=== PATIENT | female | born 1975 | race Caucasian/White ===

== ENCOUNTER 2017-08-27 18:52 | Emergency (ER) | payer OTHER ==
[~2017-08-27] VITALS: Ht 160 cm; Wt 66.7 kg
[~2017-08-27 18:52] MED LIST: ACCUNEB SO1.25 MG/1 INH; ALBENZA200 MG PO; AMBIEN 10 MG TA10 MG PO; AMBIEN 5 MG TABL5 M1 PO; AMOXICILLIN875 MG PO; ATIVAN1 MG; CIPROFLOXACIN500 M1 PO; DEPAKOTE ER500 MG; FLAGYL500 MG; FLAGYL500 MG PO; HYDROCODONE-AP1 EAC6 PO; KLOR-CON 1010 MEQ PO; NORCO 5-325 TA1 EACH PO; ONDANSETRON HCL4 M2 PO; PERCOCET; PERCOCET 7.5-31 EACH PO; POTASSIUM20; PROTONIX40 M1; PROVENTIL IH; TOPAMAX50 MG; VALIUM5 MG PO; VICODIN 5-5001 EACH; ZOFRAN ODT4 MG PO
[2017-08-27] MEDS ORDERED: PLAVIX 75 MG TA75 M1 PO (19:05)
[2017-08-27] MEDS ORDERED: ZANTAC 150MG T150 MG PO (19:06)
[2017-08-27] MEDS ORDERED: VINPAT (19:06)
[2017-08-27 19:42] LABS: URINE BLOOD NEGATIVE (Negative); URINE CLARITY CLEAR; URINE COLOR YELLOW; URINE GLUCOSE-RANDOM NEGATIVE (Negative); URINE KETONES 2+ (Negative); URINE LEUKOCYTES-REFLEX NEGATIVE (Negative); URINE NITRITE-REFLEX NEGATIVE (Negative); URINE PROTEIN NEGATIVE (Negative); URINE SPECIFIC GRAVITY 1.025 (1.005-1.030); URINE UROBILINOGEN 0.2 E.U./dl (0.2-1.0)
[2017-08-27 19:46] LABS: ICTOTEST (BILI CONFIRMATORY) Negative (Negative); URINE BILIRUBIN 1+ (Negative)
[2017-08-27 20:00] LABS: ABSOLUTE LYMPHOCYTES 3.3 thou/uL (0.8-5.3); ABSOLUTE MONOCYTES 0.4 thou/uL (0.0-1.2); BASOPHILS 0.3 %; CALCIUM 8.8 mg/dL (8.5-10.1); CREATININE 0.6 mg/dL (0.6-1.3); EOSINOPHILS 0.3 %; HEMATOCRIT 39.4 % (37.0-47.0); HEMOGLOBIN 13.8 gm/dL (12.0-15.0); LYMPHOCYTES 37.8 %; MCH 39.9 pg (26.0-34.0); MCHC 35.1 g/dL (28.0-37.0); MCV 113.6 fL (80.0-100.0); MONOCYTES 4.7 %; MPV 7.9 fl. (7.2-11.1); NUCLEATED RBCS 0 /100WBC; PLATELET COUNT* 224 thou/uL (150-400); POLYS 56.9 %; POTASSIUM 3.3 mmol/L (3.5-5.1); RBC 3.47 mil/uL (4.20-5.00); RDW-CV 13.3 % (10.5-14.5); WBC 8.7 thou/uL (4.0-11.0)
[2017-08-27 20:05] LABS: TOTAL BILIRUBIN 0.3 mg/dL (<0.1-1.0); TOTAL PROTEIN 6.8 g/dL (6.4-8.2)
[2017-08-27 20:39] LABS: PLATELET ESTIMATE ADEQUATE
[2017-08-27 20:41] LABS: MACROCYTES 1+
[2017-08-27] MEDS ORDERED: ACETAMINOPHEN-1 EAC1 PO (21:16)
[2017-08-27 21:32] VITALS: BP 126/71
--- NOTE | 2017-08-28 10:29 | EKG ---
[place] [address] ELECTROCARDIOGRAM REPORT Name: LILLIAN BARNES Room: [facility]#: [id number] Admission: 08/27/17 Attend Phys: Discharge: 08/27/17 Date of : 73 Report #: [id number] THIS REPORT FOR: //name// [facility] ED Test Date: 2017-08-27 Test Time: 19:20:48 Pat Name: LILLIAN BARNES Department: Room: Gender: F Workers Compensation Administrator: ARTEMIO : 1975 Requested By: Lillian Winters Order Number: [id number] MD: Bryan Thomson Measurements Intervals [place] Rate: 66 P: 40 LA: 166 QRS: 31 QRSD: 93 T: 56 QT: 399 QTc: 418 Interpretive Statements Sinus rhythm Borderline T wave abnormalities No previous ECG available for comparison Electronically Signed On 08-28-2017 10:29:45 CLEAT BLANKER by Bryan Thomson [email or web address] <ELECTRONICALLY SIGNED> By: Bryan Thomson MD, [facility] 08/28/17 1029 1920 1920 Bryan Thomson MD, FACC /EPI
== END 2017-08-27 21:34 | disposition home or self-care (01) ==
LOC: M.ERS 18:52
PROVIDERS: Nurse Practitioner Family
DX: R10.11 Right upper quadrant pain (principal); G43.909 Migraine, unspecified, not intractable, without status migrainosus; J45.909 Unspecified asthma, uncomplicated; N80.9 Endometriosis, unspecified; Z90.722 Acquired absence of ovaries, bilateral; Z90.49 Acquired absence of other specified parts of digestive tract; Z90.710 Acquired absence of both cervix and uterus; Z98.890 Other specified postprocedural states; Z88.8 Allergy status to other drugs, medicaments and biological substances; Z88.5 Allergy status to narcotic agent; Z88.2 Allergy status to sulfonamides

== ENCOUNTER 2018-09-08 10:44 | Emergency (ER) | payer OTHER ==
[~2018-09-08] VITALS: Ht 160 cm; Wt 62.1 kg
[~2018-09-08 10:44] MED LIST changes: +ACETAMINOPHEN-1 EAC1 PO; +PLAVIX 75 MG TA75 M1 PO; +VINPAT; +ZANTAC 150MG T150 MG PO
[2018-09-08] MEDS ORDERED: SEIZURE MEDICATION (11:00)
[2018-09-08] MEDS ORDERED: KEPPRA 500 MG500 M1 PO ×2 (11:00)
[2018-09-08 12:33] LABS: URINE BLOOD NEGATIVE (Negative); URINE CLARITY CLEAR; URINE COLOR YELLOW; URINE GLUCOSE-RANDOM NEGATIVE (Negative); URINE KETONES TRACE (Negative); URINE LEUKOCYTES-REFLEX NEGATIVE (Negative); URINE NITRITE-REFLEX NEGATIVE (Negative); URINE PROTEIN NEGATIVE (Negative); URINE SPECIFIC GRAVITY 1.025 (1.005-1.030); URINE UROBILINOGEN 0.2 E.U./dl (0.2-1.0)
[2018-09-08 12:36] LABS: ICTOTEST (BILI CONFIRMATORY) Negative (Negative); URINE BILIRUBIN 1+ (Negative)
[2018-09-08 12:41] LABS: ABSOLUTE LYMPHOCYTES 2.1 thou/uL (0.8-5.3); ABSOLUTE MONOCYTES 0.3 thou/uL (0.0-1.2); ABSOLUTE NEUTROPHILS 3.7 thou/uL (1.6-8.1); BASOPHILS 0.3 %; EOSINOPHILS 0.4 %; HEMATOCRIT 40.3 % (37.0-47.0); LYMPHOCYTES 33.8 %; MCHC 34.7 g/dL (28.0-37.0); MCV 115.4 fL (80.0-100.0); MONOCYTES 5.4 %; MPV 7.4 fl. (7.2-11.1); NUCLEATED RBCS 0 /100WBC; PLATELET COUNT* 251 thou/uL (150-400); POLYS 60.1 %; RBC 3.49 mil/uL (4.20-5.00); RDW-CV 13.2 % (10.5-14.5); WBC 6.1 thou/uL (4.0-11.0)
[2018-09-08 12:43] LABS: CREATININE 0.7 mg/dL (0.6-1.3); POTASSIUM 3.5 mmol/L (3.5-5.1)
[2018-09-08 12:48] LABS: ALBUMIN 3.9 g/dL (3.4-5.0); TOTAL BILIRUBIN 0.3 mg/dL (<0.1-1.0); TOTAL PROTEIN 6.9 g/dL (6.4-8.2)
[2018-09-08 12:53] LABS: CALCIUM 9.1 mg/dL (8.5-10.1)
[2018-09-08 13:10] LABS: PLATELET ESTIMATE ADEQUATE
[2018-09-08 13:11] LABS: MACROCYTES 2+
[2018-09-08] MEDS ORDERED: NORCO 5-325 TA1 EACH PO (13:53)
[2018-09-08] MEDS ORDERED: ZOFRAN ODT4 MG PO (13:54)
[2018-09-08] MEDS ORDERED: MAGIC MOUTHWASH SW&SWALLOW (14:33)
[2018-09-08 14:50] VITALS: BP 113/69
--- NOTE | 2018-09-09 12:18 | EKG ---
[place] [address] ELECTROCARDIOGRAM REPORT Name: BARNESLILLIAN Gomes Room: [facility]#: [id number] Admission: 09/08/18 Attend Phys: Discharge: 09/08/18 Date of : 73 Report #: [id number] THIS REPORT FOR: //name// [facility] ED Test Date: 2018-09-08 Test Time: 12:00:27 Pat Name: LILLIAN BARNES Department: Room: Gender: F Farm Equipment Engine Mechanic: Noy PAYNE : 1975 Requested By: Kiera Bautista Order Number: [id number] MD: Bryan Thomson Measurements Intervals [place] Rate: 62 P: 42 NM: 166 QRS: 21 QRSD: 90 T: 57 QT: 413 QTc: 420 Interpretive Statements Sinus rhythm Compared to ECG 08/27/2017 19:20:48 T-wave abnormality no longer present Electronically Signed On 09-09-2018 12:18:49 ENVIRONMENTAL PROTECTION INSPECTOR by Bryan Thomson [email or web address] <ELECTRONICALLY SIGNED> By: Bryan Thomson MD, [facility] 09/09/18 1218 1200 1200 Bryan Thomson MD, FACC /EPI
== END 2018-09-08 14:50 | disposition home or self-care (01) ==
LOC: M.ERS 10:44
PROVIDERS: Physician Assistant
DX: R10.13 Epigastric pain (principal); R10.31 Right lower quadrant pain; J45.909 Unspecified asthma, uncomplicated; G43.909 Migraine, unspecified, not intractable, without status migrainosus; N80.9 Endometriosis, unspecified; Z87.11 Personal history of peptic ulcer disease; Z88.6 Allergy status to analgesic agent; Z88.2 Allergy status to sulfonamides; Z88.8 Allergy status to other drugs, medicaments and biological substances; Z90.49 Acquired absence of other specified parts of digestive tract; Z90.710 Acquired absence of both cervix and uterus; Z98.890 Other specified postprocedural states

== ENCOUNTER 2020-04-05 14:27 | Observation (INO) | payer OTHER ==
[~2020-04-05] VITALS: Ht 160 cm; Wt 74.8 kg
[~2020-04-05 14:27] MED LIST changes: +KEPPRA 500 MG500 M1 PO; +MAGIC MOUTHWASH SW&SWALLOW; +SEIZURE MEDICATION; -TOPAMAX50 MG; +TOPAMAX50 MG PO
[2020-04-05 14:36] VITALS: BP 126/75
[2020-04-05] MEDS ORDERED: DESYREL150 MG PO (14:40)
[2020-04-05] MEDS ORDERED: PROAIR HFA8.5 GM INH (14:40)
[2020-04-05 15:10] LABS: HEMOGLOBIN 14.6 gm/dL (12.0-15.0); LYMPHOCYTES 29.4 %; MPV 7.5 fl. (7.2-11.1)
[2020-04-05 15:12] LABS: ABSOLUTE LYMPHOCYTES 2.1 thou/uL (0.8-5.3); ABSOLUTE MONOCYTES 0.3 thou/uL (0.0-1.2); ABSOLUTE NEUTROPHILS 4.8 thou/uL (1.6-8.1); BASOPHILS 0.3 %; EOSINOPHILS 0.1 %; HEMATOCRIT 40.6 % (37.0-47.0); MCH 40.4 pg (26.0-34.0); MCHC 35.9 g/dL (28.0-37.0); MCV 112.6 fL (80.0-100.0); NUCLEATED RBCS 0 /100WBC; PLATELET COUNT* 237 thou/uL (150-400); POLYS 66.2 %; RBC 3.61 mil/uL (4.20-5.00); RDW-CV 12.4 % (10.5-14.5); WBC 7.3 thou/uL (4.0-11.0)
[2020-04-05 15:20] LABS: CREATININE 0.7 mg/dL (0.6-1.3); POTASSIUM 3.9 mmol/L (3.5-5.1)
[2020-04-05 15:25] LABS: TOTAL BILIRUBIN 0.3 mg/dL (<0.1-1.0); TOTAL PROTEIN 7.4 g/dL (6.4-8.2)
[2020-04-05 15:45] LABS: ANISOCYTOSIS Occasional; MACROCYTES 2+
[2020-04-05 16:54] LABS: URINE BILIRUBIN NEGATIVE (Negative); URINE BLOOD NEGATIVE (Negative); URINE CLARITY CLEAR; URINE COLOR YELLOW; URINE GLUCOSE-RANDOM NEGATIVE (Negative); URINE KETONES NEGATIVE (Negative); URINE LEUKOCYTES-REFLEX NEGATIVE (Negative); URINE NITRITE-REFLEX NEGATIVE (Negative); URINE PROTEIN NEGATIVE (Negative); URINE SPECIFIC GRAVITY <= 1.005 (1.005-1.030); URINE UROBILINOGEN 0.2 E.U./dl (0.2-1.0)
[2020-04-05 17:01] LABS: AMP/METHAMP Negative (Negative); BARBITURATES Negative (Negative); BENZODIAZEPINES Negative (Negative); COCAINE Negative (Negative); METHADONE Negative (Negative); OPIATES Negative (Negative); PCP Negative (Negative); THC Negative (Negative)
[2020-04-05 20:00] VITALS: BP 134/71
[2020-04-05] MEDS ORDERED: NORCO 7.5-3251 EACH PO (20:37)
[2020-04-06] VITALS: BP 131/65
[2020-04-06 04:02] VITALS: BP 120/72
[2020-04-06 08:00] VITALS: BP 110/68
--- NOTE | 2020-04-06 09:56 | EKG ---
[place] [address] ELECTROCARDIOGRAM REPORT Name: BARNESLILLIAN Gomes Room: [address]#: [id number] Admission: 04/05/20 Attend Phys: Vanessa Lott, Discharge: Date of : 73 Date of Service: 04/05/20 1443 Report #: [id number] THIS REPORT FOR: //name// [facility] ED Test Date: 2020-04-05 Test Time: 14:43:16 Pat Name: LILLIAN BARNES Department: Room: [facility] Gender: F Aircraft General Repair Mechanic: CCD : 1975 Requested By: Kyle Mcfarlane Order Number: [id number] MD: Ed Aponte Measurements Intervals [place] Rate: 77 P: 43 IA: 165 QRS: 24 QRSD: 90 T: 62 QT: 393 QTc: 445 Interpretive Statements Sinus rhythm Compared to ECG 09/08/2018 12:00:27 No significant changes Electronically Signed On 04-06-2020 9:55:46 CDT by Ed Aponte [email or web address] <ELECTRONICALLY SIGNED> By: Ed Aponte MD, [facility] 04/06/20 0955 1443 1443 Ed Aponte MD, [facility] /EPI
[2020-04-06 11:30] VITALS: BP 98/53
[2020-04-06 15:24] LABS: CALCIUM 8.6 mg/dL (8.5-10.1); CREATININE 0.8 mg/dL (0.6-1.3); MAGNESIUM 1.9 mg/dL (1.8-2.4); POTASSIUM 3.6 mmol/L (3.5-5.1)
[2020-04-06 16:00] VITALS: BP 115/49
[2020-04-06 20:00] VITALS: BP 102/56
[2020-04-07] VITALS: BP 89/53
[2020-04-07 04:00] VITALS: BP 91/49
[2020-04-07 08:00] VITALS: BP 105/63
[2020-04-07] MEDS ORDERED: KEPPRA 500 MG500 M1 PO (09:38)
[2020-04-07] MEDS ORDERED: NORCO 7.5-3251 EACH PO (10:29)
[2020-04-07] MEDS ORDERED: PHENERGAN 25 MG25 M1 PO (10:29)
[2020-04-07 12:00] VITALS: BP 90/51
[2020-04-07 16:00] VITALS: BP 96/54
[2020-04-07 20:00] VITALS: BP 123/75
[2020-04-08 04:00] VITALS: BP 106/57
[2020-04-08 08:00] VITALS: BP 110/60
[2020-04-08] MEDS ORDERED: ATIVAN1 M1 PO (09:34)
[2020-04-08] MEDS ORDERED: NORCO 10-325 T1 EACH PO (09:35)
[2020-04-08 10:15] VITALS: BP 106/57
--- NOTE | 2020-04-08 12:08 | EEG ---
[address] [address] EEG STUDY REPORT Name: LILLIAN BARNES Room: [address]R.#: [id number] Admission: 04/05/20 Attend Phys: Vanessa Lott MD Discharge: 04/08/20 Date of : 73 Report #: [id number] THIS REPORT FOR: //name// CC: [facility] physician/PCP Vanessa Lott DATE OF SERVICE: 04/06/2020 This patient is being evaluated for the possibility of seizure. EEG was done by placing the electrode by standard 10-20 system of electrode placement. Both referential and sequential montages were used for recording. Background activity in this patient's EEG is about 9 Hz and 30 microvolts. It is a symmetrical activity. Photic stimulation is unremarkable. Throughout the record, no active epileptiform activity was noticed. IMPRESSION: This patient's EEG is within normal limits. Thank you very much for this referral. <ELECTRONICALLY SIGNED> By: Kris Carvajal MD 04/08/20 1208 1647 1728Kris Carvajal MD /nt
--- NOTE | 2020-04-08 12:08 | CON ---
[address] [address] CONSULTATION Name: LILLIAN BARNES Room: [address] [place]#: [id number] Admission: 04/05/20 Attend Phys: Vanessa Lott MD Discharge: 04/08/20 Date of : 73 Report #: [id number] THIS REPORT FOR: //name// cc: DENNIS Yeboah No family physician/PCP DENNIS - No family physician/PCP ~ THIS REPORT FOR: //name// CC: DENNIS physician/PCP Vansesa Lott DATE OF SERVICE: 04/06/2020 HISTORY OF PRESENT ILLNESS: This is a 44-year-old female patient who was evaluated by me for the seizure. The patient's history is complicated and is not very clear. She indicates that she had seizure for a long time. She used to go to [facility]. She does not know which physician she used to see there. Subsequently she switched to Dr. Henderson at [facility] and he is an epileptologist. She said she had multiple testings done and those testing included a video monitored EEG. She does not know whether all her seizures were diagnosed as epileptic seizure or some of them were diagnosed as nonepileptic events. 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 She believes it was demonstrated on imaging study of the brain. I do not have any of her prior records, but she did have a CT scan of the head during this admission and that does not appear to be showing any abnormality. She does indicate she had MRIs in the past. She said she fell down and she is complaining of pain in the back of the head, but then she also says that she takes pain medicines at home also. She had multiple visits to Emergency Room here. Some of them has been for migraine headache and they had done multiple testing on her in that regard. She is on a combination of Topamax as well as Keppra for her seizure disorder. She takes small dose of Keppra at 500 mg p.o. b.i.d. and she takes Topamax at 150 mg p.o. b.i.d. REVIEW OF SYSTEMS: A 14-point review of system was carried out. She does have pain. She does have migraine. She has some upper respiratory tract like infection. She says she has both grand mal and petit mal seizure. She has a history of hysterectomy. She has a Port-A-Cath, which has been there for 10 years and she says her physician told her that it can stay in forever. She does have a history of insomnia, endometriosis. This was her relevant 14-point review of system. PAST MEDICAL HISTORY: Positive for seizure, but further workup is necessary to see that part of it is not a non-epileptiform event. FAMILY HISTORY: Positive for seizure in son but he has cerebral palsy. SOCIAL HISTORY: She drinks alcohol very rarely. She does [place] [address] CONSULTATION Name: LILLIAN BARNES Room: [address] [place]#: [id number] Admission: 04/05/20 Attend Phys: Vanessa Lott MD Discharge: 04/08/20 Date of : 73 Report #: [id number] She does smoke. PHYSICAL EXAMINATION: Indicate that she is alert, responsive, complaining of pain in the neck area and otherwise she is oriented. Her speech looks okay. She claims she had another seizure when she woke up today. Cranial nerve examinations appear unremarkable. Strength, sensation, reflexes and tone looks symmetrical. Her position sense and touch is intact. I could not look at the patient's fundus. There is no meningeal sign. There is no carotid bruit. Her cardiac examinations appear unremarkable. No respiratory difficulty was noticed. Blood pressure is 120/72, respirations 16, pulse is 63, temperature is 98.3. Hearing and vision is adequate. She has no carotid bruit. There is no thyroid mass. Her pulses are nicely palpable in the lower extremities. IMPRESSION: She is complaining of multiple problems. As far as seizure is concerned for which a consultation was requested, I am not sure from the history whether they are all epileptiform event or non-epileptiform event. I discussed with the patient the limitation of our hospital. I told her that we can do an EEG, but we do not have a video monitored EEG or an epileptologist here. I will increase Keppra to slightly higher dose for the time being and I will await her EEG. She is complaining of pain in the neck area and she said she hit her head there and I will suggest doing a C-spine MRI and I went ahead CT scan and I went ahead and ordered that. Thank you very much for this referral. <ELECTRONICALLY SIGNED> By: Kris Carvajal MD 04/08/20 1208 0851 0946Kris Carvajal MD /nt
== END 2020-04-08 11:00 | disposition home or self-care (01) ==
LOC: M.ERS 14:27 → M.2W 16:31 → M.TBA-ER 16:31 → M.2W 17:48
PROVIDERS: Family Medicine; Internal Medicine; Physician Assistant; ADMIT Internal Medicine; ATTEND Internal Medicine
DX: G40.909 Epilepsy, unspecified, not intractable, without status epilepticus (principal); R51 Headache; R10.9 Unspecified abdominal pain; R11.2 Nausea with vomiting, unspecified; R19.7 Diarrhea, unspecified; E87.6 Hypokalemia; F11.23 Opioid dependence with withdrawal; H66.90 Otitis media, unspecified, unspecified ear; J45.909 Unspecified asthma, uncomplicated; J06.9 Acute upper respiratory infection, unspecified; B34.9 Viral infection, unspecified; F17.210 Nicotine dependence, cigarettes, uncomplicated; Z87.11 Personal history of peptic ulcer disease; Z79.899 Other long term (current) drug therapy; Z20.828 Contact with and (suspected) exposure to other viral communicable diseases